=== PATIENT | female | born 2000 | race Caucasian/White ===

== ENCOUNTER 2024-10-10 15:52 | Emergency (ER) | payer OTHER ==
[2024-10-10] MEDS: ALPRAZolam 0.25 MG Tab PO ONE (16:24)
[2024-10-10] MEDS: Take Home: Cyclobenzaprine 10 MG Tab, 4 Tab Pack PO ONE (17:30)
== END 2024-10-10 17:43 | disposition home or self-care (01) ==
LOC: VM.ED 15:52
DX: S60.511A Abrasion of right hand, initial encounter (principal); M54.50 Low back pain, unspecified; Z79.899 Other long term (current) drug therapy; V49.59XA Passenger injured in collision with other motor vehicles in traffic accident, initial encounter; W55.03XA Scratched by cat, initial encounter
CPT/HCPCS: 99283; 99284; A9270